=== PATIENT | female | born 1965 | race Caucasian/White ===

== ENCOUNTER 2016-12-27 07:20 | Day surgery (SDC) | payer BC ==
--- NOTE | 2016-12-14 15:55 | History and Physical Report ---
December 13, 2016 CHIEF COMPLAINT: I saw Ms. Vences in the office on 12/13/16 in regards to her abdominal pain. Ms. Vences is a 51-year-old female who states gets ongoing right subcostal postprandial pain. She does have fatty food intolerance and extreme bloating. She underwent both a CTA as well as ultrasound. This did both reveal a thickened fundus of the gallbladder with cholelithiasis. They could not rule out a gallbladder mass in this area. She does have a history of recurrent biliary colic as well. PAST MEDICAL HISTORY: Significant for GERD, hypercholesterolemia, hypertension, COPD, chronic arthritis. PAST SURGICAL HISTORY: Partial hysterectomy. Laparoscopic tubal ligation. MEDICATIONS: She currently takes; Potassium Calcium Probiotic Imodium Omeprazole ALLERGIES: SHE HAS ALLERGIES TO SULFA. SOCIAL HISTORY: She does smoke two pack of cigarettes per day. She does have a social alcohol history. PHYSICAL EXAMINATION: GENERAL: Height is 5'2". Weight is 111. VITAL SIGNS: She is afebrile. Vital signs are stable. HEART: Regular. LUNGS: Decreased. ABDOMEN: Soft. She does have some tenderness on palpation. She does have a reducible umbilical hernia as well. IMPRESSION: CHOLELITHIASIS WITH CHRONIC CHOLECYSTITIS: We did discuss laparoscopic cholecystectomy versus observation. She desires surgical intervention. The risks include but not limited to; bleeding, infection, ductal injury, possible conversion to open, postoperative bile leak, and she understands this fully. We will repair her umbilical hernia at the same time. Thank you for this kind referral. Flavio Thompson D.O. Date & Time JOB NUMBER: [id number] MTDD
[~2016-12-27 07:20] MED LIST: ACETAMINOPHEN 1000MG/100 ML PREMIX IV ONE; CLINDAMYCIN 600MG/50ML PREMIX 50 ML IVPB ONE; FAMOTIDINE 20MG TABLET PO ONE; MECLIZINE 25 MG TABLET PO ONE; METOCLOPRAMIDE 10 MG TABLET PO ONE
[2016-12-27] MEDS ORDERED: ONDANSETRON HCL IV 4 MG/2 ML VIAL IVP ONE (14:00)
[2016-12-27] MEDS ORDERED: SEVOFLURANE 250 ML INH ONE (14:00)
[2016-12-27] MEDS ORDERED: FENTANYL PF 100MCG/2ML VIAL IV ONE (14:00)
[2016-12-27] MEDS ORDERED: NEOSTIGMINE 1 MG/1 ML,10ML VIAL IV ONE (14:00)
[2016-12-27] MEDS ORDERED: GLYCOPYRROLATE 0.2 MG/ML ML IV ONE (14:00)
[2016-12-27] MEDS ORDERED: ROCURONIUM BROMIDE 50MG/5ML VIAL IV ONE (14:00)
[2016-12-27] MEDS ORDERED: SUCCINYLCHOLINE 20 MG/ML 10ML IVP ONE (14:00)
[2016-12-27] MEDS ORDERED: PROPOFOL 10 MG/ML VIAL IV ONE (14:00)
[2016-12-27] MEDS ORDERED: MIDAZOLAM HCL 2MG/2ML VIAL IV ONE (14:00)
[2016-12-27] MEDS ORDERED: KETOROLAC 30 MG/ML VIAL IVP ONE (14:00)
[2016-12-27] MEDS ORDERED: BUPIVACAINE 0.25% W/EPI MPF 30ML VIAL IVP ONE (14:59)
[2016-12-27] MEDS ORDERED: HYDROCODONE/APAP 5/325MG TABLET PO ONE (14:59)
--- NOTE | 2016-12-28 18:37 | Operative Note ---
DATE OF SURGERY: 01/03/2017 REFERRING: Trisha Arce PA-C PREOPERATIVE DIAGNOSES: 1. Cholelithiasis with chronic cholecystitis. 2. Incarcerated umbilical hernia. POSTOPERATIVE DIAGNOSES: 1. Cholelithiasis with chronic cholecystitis. 2. Incarcerated umbilical hernia. OPERATIONS: 1. Laparoscopic cholecystectomy. 2. Open umbilical herniorrhaphy with mesh. Surgeon: Flavio Thompson D.O. Indication: The patient is a 51-year-old female who is having ongoing right subcostal postprandial pain. Ultrasound did reveal cholelithiasis with a questionable thickened gallbladder wall. She also has incarcerated umbilical hernia on exam. We did discuss cholecystectomy versus medical management. The risks included bleeding, infection, ductal injury, possible conversation to open , postoperative bile leak. She understood this fully. PROCEDURE: Therefore after consent was signed and questions answered she was taken to the operating room and placed in the supine position. General anesthesia was administered per Department of Anesthesia. Patient's abdomen was prepped and draped in the usual fashion. Adequate timeout was performed. She did receive a preoperative antibiotic for presumed umbilical repair. At this time an incision was made overlying the umbilical hernia. This was carried down to the hernia sac. This was dissected free from the surrounding tissue. Stay sutures of 0 Vicryl were placed on the fascial level and the peritoneal cavity was entered bluntly. At this time a 10 mm blunt Sergio port was placed and adequate pneumoperitoneum was established. Under direct visualization additional 5 mm epigastric and two 5 mm right subcostal ports were placed. The patient then rotated into reversed Trendelenburg, rotation to the left. Gallbladder was identified in the subhepatic space and there were adhesions of the duodenum to the liver which were noted. The gallbladder was retracted in a cephalad and lateral direction, opening up the angle of Calot. The hepatocystic triangle was thoroughly dissected out. There was no aberrant anatomy. No posterior ductal structures. Critical view of safety was obtained by releasing the distal half of the gallbladder off the liver plate. Each one was doubly clipped and cut in standard fashion. The gallbladder was taken off the liver bed with Oscar harmonic. This was then placed in an EndoCatch bag and brought out infraumbilically. While keeping the pneumoperitoneum intact, I did place a 6.4 cm ventral mesh which laid flat. The pneumoperitoneum was released. All ports removed. The patient was leveled out. The mesh was sutured to the anterior rectus fascia with 2-0 Vicryl. The tails of the mesh were trimmed and overlapped the fascia as well. All wounds were closed with 4- 0 Vicryl. She was taken to recovery room in satisfactory condition. JOSE ARMANDO
== END 2016-12-27 10:50 | disposition home or self-care (01) ==
LOC: SUR 07:20
PROVIDERS: ATTEND Surgery
DX: K80.10 Calculus of gallbladder with chronic cholecystitis without obstruction (principal); K42.9 Umbilical hernia without obstruction or gangrene; E78.00 Pure hypercholesterolemia, unspecified; I10 Essential (primary) hypertension; J44.9 Chronic obstructive pulmonary disease, unspecified
CPT/HCPCS: 84132; J0330; J1885; J2405; J2710

== ENCOUNTER 2017-09-16 00:29 | Emergency (ER) | payer BC ==
[2017-09-16] MEDS ORDERED: IBUPROFEN 600 MG TABLET PO ONE (00:45)
--- NOTE | 2017-09-16 00:54 | Emergency Department Record ---
History of Present Illness - General Chief complaint: Extremity Problem Stated complaint: FELL, THINK SHE BROKE HER ARM Time Seen by Provider: 09/16/17 00:42 Source: Patient Mode of Arrival: Ambulatory Limitations: No limitations - History of Present Illness Initial comments: pt fell on slippery floor on outstretched hand injuring r wrist. Complaint: Extremity pain, Extremity swelling, Joint pain, Joint swelling Onset/Timin -: Hour(s) Location: Right, Forearm History of Same: No Radiation: None Severity scale (1-10): 3 Quality: Aching Consistency: Constant Improves with: Cold therapy Worsens with: Palpation Associated Symptoms: Denies other symptoms - Related Data Home Medications Medication Instructions Recorded Confirmed Last Taken Loperamide HCl [Immodium] 2 mg PO NOW 09/16/17 09/16/17 Unknown Previous Rx's Medication Instructions Recorded Hydrocodone/Acetaminophen [[place] 1 each PO Q6HR #10 tablet 09/16/17 5-325 Tablet] Allergies Allergy/AdvReac Type Severity Reaction Status Date / Time amoxicillin trihydrate Allergy Severe HIVES Unverified 08/01/17 08:09 [From Augmentin] potassium clavulanate Allergy Severe HIVES Unverified 08/01/17 08:09 [From Augmentin] Sulfa (Sulfonamide Allergy Severe HIVES Unverified 08/01/17 08:09 Antibiotics) Travel Screening - Travel/Exposure Within Last 30 Days Have you traveled within the last 30 days?: No - Travel/Exposure Within Last Year Have you traveled outside the [place] in the last year?: No - Additonal Travel Details Have you been exposed to anyone with a communicable illness?: No - Travel Symptoms Symptom Screening: None Review of Systems Reviewed: No additional complaints except as noted below Constitutional: Reports: As per HPI. Denies: Chills, Fever, Malaise, Night sweats, Weakness, Weight change Eyes: Reports: As per HPI. Denies: Eye discharge, Eye pain, Photophobia, Vision change ENT: Reports: As per HPI. Denies: Congestion, Dental pain, Ear pain, Epistaxis , Hearing loss, Throat pain Respiratory: Reports: As per HPI. Denies: Cough, Dyspnea, Hemoptysis, Stridor, Wheezes Cardiovascular: Reports: As per HPI. Denies: Arrhythmia, Chest pain, Dyspnea on exertion, Edema, Murmurs, Orthopnea, Palpitations, Paroxysmal nocturnal dyspnea, Rheumatic Fever, Syncope Endocrine: Reports: As per HPI. Denies: Fatigue, Heat or cold intolerance, Polydipsia, Polyuria Gastrointestinal: Reports: As per HPI. Denies: Abdominal pain, Constipation, Diarrhea, Hematemesis, Hematochezia, Melena, Nausea, Vomiting Genitourinary: Reports: As per HPI. Denies: Abnormal menses, Discharge, Dyspareunia, Dysuria, Frequency, Hematuria, Incontinence, Retention, Urgency Musculoskeletal: Reports: As per HPI. Denies: Arthralgia, Back pain, Gout, Joint swelling, Myalgia, Neck pain Skin: Reports: As per HPI. Denies: Bruising, Change in color, Change in hair/ nails, Lesions, Pruritus, Rash Neurological: Reports: As per HPI. Denies: Abnormal gait, Confusion, Headache, Numbness, Paresthesias, Seizure, Tingling, Tremors, Vertigo, Weakness Psychiatric: Reports: As per HPI. Denies: Anxiety, Auditory hallucinations, Depression, Homicidal thoughts, Suicidal thoughts, Visual hallucinations Hematological/Lymphatic: Reports: As per HPI. Denies: Anemia, Blood Clots, Easy bleeding, Easy bruising, Swollen glands Past Medical History - SOCIAL HISTORY Smoking Status: Current every day smoker Alcohol Use: Occasional Drug Use: None - RESPIRATORY Hx Respiratory Disorders: No - CARDIOVASCULAR Hx Cardio Disorders: Yes Hx Hypertension: Yes - NEURO Hx Neuro Disorders: No - GI Hx GI Disorders: No - Hx Genitourinary Disorders: No - ENDOCRINE Hx Endocrine Disorders: No - MUSCULOSKELETAL Hx Musculoskeletal Disorders: No - PSYCH Hx Psych Problems: No - HEMATOLOGY/ONCOLOGY Hx Hematology/Oncology Disorders: No Family Medical History Any Significant Family History?: No Physical Exam - General General Appearance: Alert, Oriented x3, Cooperative, Mild distress - Head Head exam: Normal inspection - Eye Eye exam: Normal appearance, PERRL, EOMI Pupils: Normal accommodation - ENT ENT exam: Normal exam, Mucous membranes moist, Normal external ear exam, Normal orophraynx Ear exam: Normal external inspection. negative: External canal tenderness Nasal Exam: Normal inspection. negative: Discharge, Sinus tenderness Mouth exam: Normal external inspection, Tongue normal Teeth exam: Normal inspection. negative: Dental caries Throat exam: Normal inspection. negative: Tonsillar erythema, Tonsillar exudate - Neck Neck exam: Normal inspection, Full ROM. negative: Tenderness - Respiratory Respiratory exam: Normal lung sounds bilaterally. negative: Respiratory distress - Cardiovascular Cardiovascular Exam: Regular rate, Normal rhythm, Normal heart sounds - GI/Abdominal GI/Abdominal exam: Soft, Normal bowel sounds. negative: Tenderness - Rectal Rectal exam: Deferred - exam: Deferred - Extremities Extremities exam: Joint swelling, Normal capillary refill, Tenderness. negative : Normal inspection, Full ROM Image of Hand: 1 - bony deformity, swelling - Back Back exam: Reports: Normal inspection, Full ROM. Denies: Muscle spasm, Rash noted, Tenderness - Neurological Neurological exam: Alert, CN II-XII intact, Normal gait, Oriented X3 - Psychiatric Psychiatric exam: Normal affect, Normal mood - Skin Skin exam: Dry, Intact, Normal color, Warm Disposition Disposition: Discharge Clinical Impression: Colles' fracture of right radius Qualifiers: Encounter type: initial encounter Fracture type: closed Qualified Code(s): S52.531A - Colles' fracture of right radius, initial encounter for closed fracture Disposition: Still a Patient at [facility] Condition: (1) Good Instructions: Wrist Fracture in Adults (ED) Additional Instructions: follow up with dr willams today. ice and elevate. return sooner if worse Prescriptions: Hydrocodone/Acetaminophen [[place] 5-325 Tablet] 1 each PO Q6HR #10 tablet Forms: Patient Portal Access Quality - Quality Measures Quality Measures: N/A - Blood Pressure Screening Does Patient Have Any of the Following: No Blood Pressure Classification: Hypertensive Reading Systolic Measurement: 170 Diastolic Measurement: 103 Screening for High Blood Pressure: < First Hypertensive BP, F/U Documented > [ G8950] First Hypertensive Follow-up Interventions: Follow-up with rescreen GT 1 day and LT 4 weeks.
[2017-09-16] MEDS ORDERED: HYDROCODONE/APAP 5/325MG TABLET PO ONE (01:23)
--- NOTE | 2017-09-16 01:33 | Emergency Department Record ---
History of Present Illness - General Chief complaint: Extremity Problem Stated complaint: FELL, THINK SHE BROKE HER ARM Time Seen by Provider: 09/16/17 00:42 Source: Patient Mode of Arrival: Ambulatory Limitations: No limitations - History of Present Illness Onset/Timin -: Hour(s) Location: Right, Forearm History of Same: No Radiation: None Severity scale (1-10): 3 Quality: Aching Consistency: Constant Improves with: Cold therapy Worsens with: Palpation Associated Symptoms: Denies other symptoms - Related Data Home Medications Medication Instructions Recorded Confirmed Last Taken Loperamide HCl [Immodium] 2 mg PO NOW 09/16/17 09/16/17 Unknown Previous Rx's Medication Instructions Recorded Hydrocodone/Acetaminophen [[place] 1 each PO Q6HR #10 tablet 09/16/17 5-325 Tablet] Allergies Allergy/AdvReac Type Severity Reaction Status Date / Time amoxicillin trihydrate Allergy Severe HIVES Unverified 08/01/17 08:09 [From Augmentin] potassium clavulanate Allergy Severe HIVES Unverified 08/01/17 08:09 [From Augmentin] Sulfa (Sulfonamide Allergy Severe HIVES Unverified 08/01/17 08:09 Antibiotics) Travel Screening - Travel/Exposure Within Last 30 Days Have you traveled within the last 30 days?: No - Travel/Exposure Within Last Year Have you traveled outside the [place] in the last year?: No - Additonal Travel Details Have you been exposed to anyone with a communicable illness?: No - Travel Symptoms Symptom Screening: None Review of Systems Constitutional: Reports: As per HPI. Denies: Chills, Fever, Malaise, Night sweats, Weakness, Weight change Eyes: Reports: As per HPI. Denies: Eye discharge, Eye pain, Photophobia, Vision change ENT: Reports: As per HPI. Denies: Congestion, Dental pain, Ear pain, Epistaxis , Hearing loss, Throat pain Respiratory: Reports: As per HPI. Denies: Cough, Dyspnea, Hemoptysis, Stridor, Wheezes Cardiovascular: Reports: As per HPI. Denies: Arrhythmia, Chest pain, Dyspnea on exertion, Edema, Murmurs, Orthopnea, Palpitations, Paroxysmal nocturnal dyspnea, Rheumatic Fever, Syncope Endocrine: Reports: As per HPI. Denies: Fatigue, Heat or cold intolerance, Polydipsia, Polyuria Gastrointestinal: Reports: As per HPI. Denies: Abdominal pain, Constipation, Diarrhea, Hematemesis, Hematochezia, Melena, Nausea, Vomiting Genitourinary: Reports: As per HPI. Denies: Abnormal menses, Discharge, Dyspareunia, Dysuria, Frequency, Hematuria, Incontinence, Retention, Urgency Musculoskeletal: Reports: As per HPI. Denies: Arthralgia, Back pain, Gout, Joint swelling, Myalgia, Neck pain Skin: Reports: As per HPI. Denies: Bruising, Change in color, Change in hair/ nails, Lesions, Pruritus, Rash Neurological: Reports: As per HPI. Denies: Abnormal gait, Confusion, Headache, Numbness, Paresthesias, Seizure, Tingling, Tremors, Vertigo, Weakness Psychiatric: Reports: As per HPI. Denies: Anxiety, Auditory hallucinations, Depression, Homicidal thoughts, Suicidal thoughts, Visual hallucinations Hematological/Lymphatic: Reports: As per HPI. Denies: Anemia, Blood Clots, Easy bleeding, Easy bruising, Swollen glands Past Medical History - SOCIAL HISTORY Smoking Status: Current every day smoker Alcohol Use: Occasional Drug Use: None - RESPIRATORY Hx Respiratory Disorders: No - CARDIOVASCULAR Hx Cardio Disorders: Yes Hx Hypertension: Yes - NEURO Hx Neuro Disorders: No - GI Hx GI Disorders: No - Hx Genitourinary Disorders: No - ENDOCRINE Hx Endocrine Disorders: No - MUSCULOSKELETAL Hx Musculoskeletal Disorders: No - PSYCH Hx Psych Problems: No - HEMATOLOGY/ONCOLOGY Hx Hematology/Oncology Disorders: No Family Medical History Any Significant Family History?: No Physical Exam - General Limitations: No limitations Course Vital Signs 09/16/17 00:35 Temperature 97.9 F Pulse Rate [ 88 Pulse Ox Probe] Respiratory 16 Rate Blood Pressure 170/103 [Left Arm] Pulse Ox 97 Disposition Clinical Impression: Colles' fracture of right radius Qualifiers: Encounter type: initial encounter Fracture type: closed Qualified Code(s): S52.531A - Colles' fracture of right radius, initial encounter for closed fracture Disposition: Still a Patient at [facility] Condition: (1) Good Instructions: Wrist Fracture in Adults (ED) Additional Instructions: follow up with dr willams today. ice and elevate. return sooner if worse Prescriptions: Hydrocodone/Acetaminophen [[place] 5-325 Tablet] 1 each PO Q6HR #10 tablet Referrals: BRYN WILLAMS [DOCTOR OF OSTEOPATH] - [facility] [Provider Group] Forms: Patient Portal Access Quality - Quality Measures Quality Measures: N/A - Blood Pressure Screening Does Patient Have Any of the Following: No Blood Pressure Classification: Hypertensive Reading Systolic Measurement: 170 Diastolic Measurement: 103 Screening for High Blood Pressure: < First Hypertensive BP, F/U Documented > [ G8950] First Hypertensive Follow-up Interventions: Follow-up with rescreen GT 1 day and LT 4 weeks.
--- NOTE | 2017-09-16 22:28 | RADIOLOGY REPORT ---
EXAM: WRIST, RIGHT 3 VIEWS HISTORY: INJURY. TECHNIQUE: Three views of the right wrist were performed. FINDINGS: There is a transverse fracture deformity of the distal right radius with dorsal angulation of the fracture fragments. The remaining osseous structures are intact. IMPRESSION: TRANSVERSE FRACTURE DEFORMITY OF THE DISTAL RIGHT RADIUS. THERE IS DORSAL ANGULATION OF THE DISTAL FRACTURE FRAGMENTS. JOB NUMBER: [id number] MTDD
== END 2017-09-16 01:44 | disposition still patient (30) ==
LOC: ER 00:29
DX: S52.531A Colles' fracture of right radius, initial encounter for closed fracture (principal); W01.0XXA Fall on same level from slipping, tripping and stumbling without subsequent striking against object, initial encounter; Y92.009 Unspecified place in unspecified non-institutional (private) residence as the place of occurrence of the external cause; I10 Essential (primary) hypertension; F17.210 Nicotine dependence, cigarettes, uncomplicated
CPT/HCPCS: 99283; 99284

== ENCOUNTER 2017-09-16 10:59 | Day surgery (SDC) | payer BC ==
[2017-09-16] MEDS ORDERED: HYDROMORPHONE HCL 2 MG/ML VIAL IV ONE (11:00)
[2017-09-16] MEDS ORDERED: MECLIZINE 25 MG TABLET PO ONE (11:00)
[2017-09-16] MEDS ORDERED: FAMOTIDINE 20MG TABLET PO ONE (11:00)
[2017-09-16] MEDS ORDERED: LIDOCAINE 2% MDV (20MG/ML) 20ML VIAL IV ONE (11:00)
[2017-09-16] MEDS ORDERED: METOCLOPRAMIDE 10 MG TABLET PO ONE (11:00)
[2017-09-16] MEDS ORDERED: PROPOFOL 10 MG/ML VIAL IV ONE (11:00)
[2017-09-16] MEDS ORDERED: SEVOFLURANE 250 ML INH ONE (11:00)
--- NOTE | 2017-09-19 09:08 | Operative Note ---
DATE OF SURGERY: 09/16/2017 Surgeon: Nahid Wahl DO PREOPERATIVE DIAGNOSIS: Displaced fracture of the right distal radius. POSTOPERATIVE DIAGNOSIS: Displaced fracture of the right distal radius. OPERATION: Closed reduction and percutaneous pinning or right distal radius. DESCRIPTION OF PROCEDURE: This 52-year-old female was taken to the operating room, placed in the supine position on the operating room table. A general anesthetic was administered and the right upper extremity was elevated. It was prepped with Hibiclens and draped in the usual sterile fashion. The image intensifier was brought into the operative field. Closed reduction of the fracture was accomplished without difficulty. The image intensifier was used to confirm satisfactory reduction in anterior-posterior and medial-lateral directions. Subsequently, with near anatomic reduction, we were able to place 2.054 K wires across the fracture from the radial styloid obliquely at different angles across the fracture site. Again, after completion, the image intensifier was used to confirm satisfactory maintenance of the position and alignment of the fracture. Once this was accomplished, the pins were cut off and bent over. The splint was applied, AP plaster mold was used. The patient was taken to the recovery room in satisfactory condition. GROSS PATHOLOGY: This patient demonstrated a comminuted displaced fracture of the distal radius which was reduced to near anatomic position utilizing closed reduction and percutaneous pinning. JOSE ARMANDO
== END 2017-09-16 18:11 | disposition home or self-care (01) ==
LOC: SUR 10:59
PROVIDERS: ATTEND Orthopaedic Surgery
DX: S52.531A Colles' fracture of right radius, initial encounter for closed fracture (principal); I10 Essential (primary) hypertension; J44.9 Chronic obstructive pulmonary disease, unspecified; Z72.0 Tobacco use
CPT/HCPCS: 25606; 01820; 76000; J1170

== ENCOUNTER 2017-09-18 11:18 | Emergency (ER) | payer BC ==
--- NOTE | 2017-09-18 11:44 | Emergency Department Record ---
History of Present Illness - General Chief complaint: Extremity Problem Stated complaint: SWOLLEN RIGHT ARM FROM INJURY Time Seen by Provider: 09/18/17 11:29 Source: Patient Mode of Arrival: Ambulatory Limitations: No limitations - History of Present Illness Initial comments: 52 yo female presents with some forearm swelling. On 09/16/17 the patient had surgery for a wrist fracture. She states the area just proximal to the splint has some swelling. No upper arm swelling or pain. The area is not warm or red. The area of swelling has mild bruising. No finger numbness or tingling. She is able to comfortably move her fingers. The splint itself is not uncomfortable. MD Complaint: Extremity swelling Onset/Timin -: Days(s) Location: Right, Arm History of Same: No Improves with: Nothing Worsens with: Nothing Associated Symptoms: Denies other symptoms - Related Data Previous Rx's Medication Instructions Recorded Hydrocodone/Acetaminophen [[place] 1 each PO Q6HR #10 tablet 09/16/17 5-325 Tablet] Allergies Allergy/AdvReac Type Severity Reaction Status Date / Time amoxicillin trihydrate Allergy Severe HIVES Verified 09/18/17 11:31 [From Augmentin] potassium clavulanate Allergy Severe HIVES Verified 09/18/17 11:31 [From Augmentin] Sulfa (Sulfonamide Allergy Severe HIVES Verified 09/18/17 11:31 Antibiotics) Travel Screening - Travel/Exposure Within Last 30 Days Have you traveled within the last 30 days?: No Review of Systems Constitutional: Denies: Chills, Fever, Malaise Eyes: Denies: Eye discharge ENT: Denies: Congestion, Throat pain Respiratory: Denies: Cough Cardiovascular: Denies: Chest pain, Syncope Endocrine: Denies: Fatigue Gastrointestinal: Denies: Diarrhea, Nausea, Vomiting Genitourinary: Denies: Dysuria Musculoskeletal: Reports: As per HPI, Arthralgia Skin: Reports: As per HPI, Bruising Neurological: Denies: Confusion, Headache, Numbness, Paresthesias, Tingling, Weakness Psychiatric: Denies: Anxiety Hematological/Lymphatic: Denies: Blood Clots, Easy bleeding, Easy bruising, Swollen glands Past Medical History - SOCIAL HISTORY Smoking Status: Current every day smoker Alcohol Use: None Drug Use: None - RESPIRATORY Hx Respiratory Disorders: No - CARDIOVASCULAR Hx Cardio Disorders: Yes Hx Hypertension: Yes - NEURO Hx Neuro Disorders: No - GI Hx GI Disorders: Yes Hx Abdominal Pain: Yes Comment:: diarrhea; chronic - Hx Genitourinary Disorders: No - ENDOCRINE Hx Endocrine Disorders: No - MUSCULOSKELETAL Hx Musculoskeletal Disorders: No - PSYCH Hx Psych Problems: No - HEMATOLOGY/ONCOLOGY Hx Hematology/Oncology Disorders: No Family Medical History Any Significant Family History?: No Physical Exam - General General Appearance: Alert, Oriented x3, Cooperative, No acute distress Limitations: No limitations - Head Head exam: Atraumatic, Normal inspection - Eye Eye exam: Normal appearance - ENT ENT exam: Normal exam Ear exam: Normal external inspection Nasal Exam: Normal inspection Mouth exam: Normal external inspection - Neck Neck exam: Normal inspection - Cardiovascular Cardiovascular Exam: Regular rate, Normal rhythm, Normal heart sounds - Rectal Rectal exam: Deferred - exam: Deferred - Extremities Extremities exam: Joint swelling. negative: Normal inspection Image of Full Body: 1 - mild bruising and swelling just proximal to the splint, the splint is in good alignment, not tight, finger easily inserted to ensure not tight proximal and distal, moves fingers without pain, sensation intact at baseline - Neurological Neurological exam: Alert, Normal gait, Oriented X3. negative: Altered, Motor sensory deficit - Psychiatric Psychiatric exam: Normal affect, Normal mood. negative: Agitated, Anxious - Skin Skin exam: Intact. negative: Cyanosis, Diaphoretic, Erythema Course Vital Signs 09/18/17 11:31 Temperature 98.3 F Pulse Rate 96 H Respiratory 18 Rate Blood Pressure 154/105 Pulse Ox 97 - Reevaluation(s) Reevaluation #1: The area of concerns appears to be normal swelling and bruising from the trauma. NO upper arm tenderness or swelling to suggest DVT. The patient has no pain or tingling. The KAYLEY wrapped was removed. The underlying gauze and splint were examined. No tightness. At the proximal and distal end there is space for movement and a finger to be inserted. The area does not feel tight to the patient. The KAYLEY was replaced. We discussed reasons for immediate return for a recheck if any concerns. 09/18/17 11:41 Disposition Disposition: Discharge Clinical Impression: Colles' fracture of right radius Disposition: Home, Self-Care Condition: (1) Good Instructions: Splint Care (ED) Additional Instructions: Return for a recheck if the splint feels tight, swelling, or any concerns Use the sling for comfort Follow up as scheduled with Dr Wahl Time of Disposition: 11:40 Quality - Quality Measures Quality Measures: N/A - Blood Pressure Screening Does Patient Have Any of the Following: No Blood Pressure Classification: Hypertensive Reading Systolic Measurement: 154 Diastolic Measurement: 105 Screening for High Blood Pressure: < Pre-Hypertensive BP, F/U Documented > [ G8950] Pre-Hypertensive Follow-up Interventions: Referral to alternative/primary care provider.
== END 2017-09-18 11:46 | disposition home or self-care (01) ==
LOC: ER 11:18
DX: R22.31 Localized swelling, mass and lump, right upper limb (principal); S52.531A Colles' fracture of right radius, initial encounter for closed fracture; W01.0XXA Fall on same level from slipping, tripping and stumbling without subsequent striking against object, initial encounter; Y92.009 Unspecified place in unspecified non-institutional (private) residence as the place of occurrence of the external cause
CPT/HCPCS: 99282

== ENCOUNTER 2018-05-09 07:04 | Emergency (ER) | payer BC ==
--- NOTE | 2018-05-09 07:36 | Emergency Department Record ---
History of Present Illness - General Chief complaint: Extremity Problem Stated complaint: ARM INJURY Time Seen by Provider: 05/09/18 07:18 Source: Patient Mode of Arrival: Ambulatory Limitations: No limitations - History of Present Illness Initial comments: pt fell last night hitting r forearm. it continues to hurt MD Complaint: Extremity pain Onset/Timin -: Hour(s) Location: Right, Arm History of Same: No Severity scale (1-10): 10 Quality: Sharp Consistency: Constant Improves with: Immobilization Worsens with: Exertion, Weight bearing Associated Symptoms: Denies other symptoms - Related Data Home Medications Medication Instructions Recorded Confirmed Last Taken Potassium Chloride 20 meq PO DAILY 05/09/18 05/09/18 Unknown Allergies Allergy/AdvReac Type Severity Reaction Status Date / Time amoxicillin trihydrate Allergy Severe HIVES Unverified 12/14/17 09:56 [From Augmentin] potassium clavulanate Allergy Severe HIVES Unverified 12/14/17 09:56 [From Augmentin] Sulfa (Sulfonamide Allergy Severe HIVES Unverified 12/14/17 09:56 Antibiotics) Travel Screening - Travel/Exposure Within Last 30 Days Have you traveled within the last 30 days?: No Review of Systems Reviewed: No additional complaints except as noted below Constitutional: Reports: As per HPI. Denies: Chills, Fever, Malaise, Night sweats, Weakness, Weight change Eyes: Reports: As per HPI. Denies: Eye discharge, Eye pain, Photophobia, Vision change ENT: Reports: As per HPI. Denies: Congestion, Dental pain, Ear pain, Epistaxis , Hearing loss, Throat pain Respiratory: Reports: As per HPI. Denies: Cough, Dyspnea, Hemoptysis, Stridor, Wheezes Cardiovascular: Reports: As per HPI. Denies: Arrhythmia, Chest pain, Dyspnea on exertion, Edema, Murmurs, Orthopnea, Palpitations, Paroxysmal nocturnal dyspnea, Rheumatic Fever, Syncope Endocrine: Reports: As per HPI. Denies: Fatigue, Heat or cold intolerance, Polydipsia, Polyuria Gastrointestinal: Reports: As per HPI. Denies: Abdominal pain, Constipation, Diarrhea, Hematemesis, Hematochezia, Melena, Nausea, Vomiting Genitourinary: Reports: As per HPI. Denies: Abnormal menses, Discharge, Dyspareunia, Dysuria, Frequency, Hematuria, Incontinence, Retention, Urgency Musculoskeletal: Reports: As per HPI. Denies: Arthralgia, Back pain, Gout, Joint swelling, Myalgia, Neck pain Skin: Reports: As per HPI. Denies: Bruising, Change in color, Change in hair/ nails, Lesions, Pruritus, Rash Neurological: Reports: As per HPI. Denies: Abnormal gait, Confusion, Headache, Numbness, Paresthesias, Seizure, Tingling, Tremors, Vertigo, Weakness Psychiatric: Reports: As per HPI. Denies: Anxiety, Auditory hallucinations, Depression, Homicidal thoughts, Suicidal thoughts, Visual hallucinations Hematological/Lymphatic: Reports: As per HPI. Denies: Anemia, Blood Clots, Easy bleeding, Easy bruising, Swollen glands Past Medical History - SOCIAL HISTORY Smoking Status: Current every day smoker - RESPIRATORY Hx Respiratory Disorders: No - CARDIOVASCULAR Hx Cardio Disorders: Yes Hx Hypertension: Yes - NEURO Hx Neuro Disorders: No - GI Hx GI Disorders: Yes Hx Abdominal Pain: Yes Comment:: diarrhea; chronic - Hx Genitourinary Disorders: No - ENDOCRINE Hx Endocrine Disorders: No - MUSCULOSKELETAL Hx Musculoskeletal Disorders: No - PSYCH Hx Psych Problems: No - HEMATOLOGY/ONCOLOGY Hx Hematology/Oncology Disorders: No Family Medical History Any Significant Family History?: No Physical Exam - General General Appearance: Alert, Oriented x3, Cooperative, Mild distress - Head Head exam: Normal inspection - Eye Eye exam: Normal appearance, PERRL, EOMI Pupils: Normal accommodation - ENT ENT exam: Normal exam, Mucous membranes moist, Normal external ear exam, Normal orophraynx Ear exam: Normal external inspection. negative: External canal tenderness Nasal Exam: Normal inspection. negative: Discharge, Sinus tenderness Mouth exam: Normal external inspection, Tongue normal Teeth exam: Normal inspection. negative: Dental caries Throat exam: Normal inspection. negative: Tonsillar erythema, Tonsillar exudate - Neck Neck exam: Normal inspection, Full ROM. negative: Tenderness - Respiratory Respiratory exam: Normal lung sounds bilaterally. negative: Respiratory distress - Cardiovascular Cardiovascular Exam: Regular rate, Normal rhythm, Normal heart sounds - GI/Abdominal GI/Abdominal exam: Soft, Normal bowel sounds. negative: Tenderness - Rectal Rectal exam: Deferred - exam: Deferred - Extremities Extremities exam: Full ROM, Normal capillary refill, Tenderness - Back Back exam: Reports: Normal inspection, Full ROM. Denies: Muscle spasm, Rash noted, Tenderness - Neurological Neurological exam: Alert, CN II-XII intact, Normal gait, Oriented X3 - Psychiatric Psychiatric exam: Normal affect, Normal mood - Skin Skin exam: Dry, Intact, Normal color, Warm Course Vital Signs 05/09/18 07:06 Temperature 97.6 F Pulse Rate 82 Respiratory 18 Rate Blood Pressure 141/90 Pulse Ox 97 Disposition Disposition: Discharge Clinical Impression: Ulna distal fracture Qualifiers: Encounter type: initial encounter Fracture type: closed Fracture morphology: other fracture Laterality: right Qualified Code(s): S52.691A - Other fracture of lower end of right ulna, initial encounter for closed fracture Disposition: Home, Self-Care Condition: (1) Good Instructions: Arm Fracture in Adults (ED) Additional Instructions: follow up with dr willams. ice and elevate. return sooner if worse. motrin for pain with food Referrals: [facility] Specialty Clinics [Provider Group] BRYN WILLAMS [DOCTOR OF OSTEOPATH] - Forms: Patient Portal Access Quality - Quality Measures Quality Measures: N/A - Blood Pressure Screening Does Patient Have Any of the Following: No Blood Pressure Classification: Hypertensive Reading Systolic Measurement: 141 Diastolic Measurement: 90 Screening for High Blood Pressure: < First Hypertensive BP, F/U Documented > [ [id number]] First Hypertensive Follow-up Interventions: Follow-up with rescreen GT 1 day and LT 4 weeks.
--- NOTE | 2018-05-10 15:06 | RADIOLOGY REPORT ---
EXAM: RIGHT FOREARM, AP AND LATERAL VIEWS HISTORY: ARM INJURY. TECHNIQUE: AP and lateral views of the right forearm were obtained. Comparison: Two views of the right wrist dated 11/11/17. Encounter: Initial. FINDINGS: There is diffuse osteopenia. There is redemonstration of a fracture deformity of the distal radial metaphysis. There has been continued healing since the prior wrist examination. This now appears chronic though there is persistent anterior cortical step off. There is an acute oblique fracture of the distal shaft of the ulna without significant displacement or angulation. There is mild associated soft tissue swelling. No other definite acute fracture is seen nor is there dislocation. There are mild degenerative changes of the radial carpal joint. There is a tiny calcific density projecting near the triangular fibrocartilage not significantly changed. This may relate to remote trauma. IMPRESSION: 1. ACUTE OBLIQUE FRACTURE OF THE DISTAL SHAFT OF THE RIGHT ULNA WITHOUT GROSS DISPLACEMENT OR ANGULATION. 2. CHRONIC FRACTURE DEFORMITY OF THE DISTAL RADIUS. JOB NUMBER: [id number] [facility]
== END 2018-05-09 08:16 | disposition home or self-care (01) ==
LOC: ER 07:04
DX: S52.691A Other fracture of lower end of right ulna, initial encounter for closed fracture (principal); I10 Essential (primary) hypertension; F17.210 Nicotine dependence, cigarettes, uncomplicated; W01.0XXA Fall on same level from slipping, tripping and stumbling without subsequent striking against object, initial encounter; Y93.01 Activity, walking, marching and hiking; Y92.010 Kitchen of single-family (private) house as the place of occurrence of the external cause
CPT/HCPCS: 99283

== ENCOUNTER 2018-07-31 10:52 | Emergency (ER) | payer BC, OTHER ==
--- NOTE | 2018-07-31 11:21 | Emergency Department Record ---
History of Present Illness - General Chief Complaint: General Time Seen by Provider: 07/31/18 11:18 Source: Patient Mode of Arrival: Ambulatory Limitations: No limitations - History of Present Illness Initial comments: The patient is in the ER due to being found intoxicated at work. She denies any pain or injury or trauma. Onset/Timin -: Days(s) - [place] Coma Scale Eye Response: (4) Open spontaneously Motor Response: (5) Localizes to pain Verbal Response: (5) Oriented Sabrina Total: 14 - Related Data Allergies Allergy/AdvReac Type Severity Reaction Status Date / Time amoxicillin trihydrate Allergy Severe HIVES Verified 07/31/18 10:55 [From Augmentin] potassium clavulanate Allergy Severe HIVES Verified 07/31/18 10:55 [From Augmentin] Sulfa (Sulfonamide Allergy Severe HIVES Verified 07/31/18 10:55 Antibiotics) Travel Screening - Travel/Exposure Within Last 30 Days Have you traveled within the last 30 days?: No Review of Systems Constitutional: Denies: Chills, Fever Past Medical History - SOCIAL HISTORY Smoking Status: Current every day smoker Alcohol Use: Heavy Alcohol Use Comment: 3 to 4 every evening Drug Use: None - RESPIRATORY Hx Respiratory Disorders: No - CARDIOVASCULAR Hx Cardio Disorders: Yes Hx Hypertension: Yes - NEURO Hx Neuro Disorders: No - GI Hx GI Disorders: Yes Hx Abdominal Pain: Yes Comment:: diarrhea; chronic - Hx Genitourinary Disorders: No - ENDOCRINE Hx Endocrine Disorders: No - MUSCULOSKELETAL Hx Musculoskeletal Disorders: No - PSYCH Hx Psych Problems: No - HEMATOLOGY/ONCOLOGY Hx Hematology/Oncology Disorders: No Family Medical History Any Significant Family History?: Yes Hx Heart Disease: Father Hx Kidney Disease: Father Physical Exam - General General Appearance: Alert, Oriented x3, Cooperative, No acute distress - Head Head exam: Atraumatic, Normocephalic, Normal inspection - Eye Eye exam: Normal appearance, PERRL - Neck Neck exam: Normal inspection, Full ROM. negative: Tenderness - Respiratory Respiratory exam: Normal lung sounds bilaterally. negative: Respiratory distress - Cardiovascular Cardiovascular Exam: Regular rate, Normal rhythm, Normal heart sounds - Extremities Extremities exam: Normal inspection, Full ROM, Normal capillary refill. negative: Tenderness - Neurological Neurological exam: Alert, Normal gait, Oriented X3. negative: Abnormal gait, Altered, Motor sensory deficit Course Vital Signs 10/22/18 10:59 Temperature 98.0 F Pulse Rate 84 Respiratory 18 Rate Blood Pressure 191/112 - Reevaluation(s) Reevaluation #1: The patient will be discharged to Employee health for further evaluation. She is not cleared for work due to her blood alcohol being 0.13. 07/31/18 11:19 Disposition Disposition: Discharge Clinical Impression: Intoxication Disposition: Home, Self-Care Condition: (2) Stable Instructions: Alcohol Intoxication (ED) Additional Instructions: Please do not drink alcohol in excess and please see your family doctor for further issues. Please also see your family doctor to have your elevated BP evaluated further. Forms: Patient Portal Access Time of Disposition: 11:20 Quality - Quality Measures Quality Measures: N/A - Blood Pressure Screening View Details: Yes Does Patient Have Any of the Following: Active Dx of HTN Blood Pressure Classification: Hypertensive Reading Systolic Measurement: 149 Diastolic Measurement: 102 Screening for High Blood Pressure: Patient Exclusion, Hx of HTN [G9744]
== END 2018-07-31 11:25 | disposition home or self-care (01) ==
LOC: EEVIPCON 10:52 → ER 10:52
DX: F10.129 Alcohol abuse with intoxication, unspecified (principal); I10 Essential (primary) hypertension; F17.210 Nicotine dependence, cigarettes, uncomplicated; Y90.0 Blood alcohol level of less than 20 mg/100 ml; Y99.0 Civilian activity done for income or pay
CPT/HCPCS: 99282